=== PATIENT | female | born 1945 | race African-American/Black ===

== ENCOUNTER 2017-07-18 11:25 | Emergency (ER) | payer OTHER ==
[~2017-07-18] VITALS: Ht 154.9 cm; Wt 74.4 kg
[~2017-07-18 11:25] MED LIST: AMLODIPINE BESYL5 MG; ASPIR-LOW81 MG; DESPEC-DM TABL1 EACH PO; ENALAPRIL MALEA20 MG; HYDROCHLOROTHIA25 MG; LEVOXYL50 MCG; MECLIZINE HCL25 MG; SYNTHROID50 MCG; TUSSI PRES-B L120 M1 PO; ZITHROMAX500 MG PO
[2017-07-18] MEDS ORDERED: NORVASC5 MG (12:06)
[2017-07-18] MEDS ORDERED: LISINOPRIL20 MG (12:06)
[2017-07-18] MEDS ORDERED: ASPIR 8181 MG (12:06)
[2017-07-18] MEDS ORDERED: ZOCOR40 MG (12:06)
== END 2017-07-18 18:04 | disposition home or self-care (01) ==
LOC: ER 11:25
DX: S73.101A Unspecified sprain of right hip, initial encounter (principal); X50.0XXA Overexertion from strenuous movement or load, initial encounter; Y93.B2 Activity, push-ups, pull-ups, sit-ups; Y92.89 Other specified places as the place of occurrence of the external cause; Y99.8 Other external cause status

== ENCOUNTER → 2021-08-10 | Outpatient (CLI) | payer OTHER ==
[~2021-08-10] MED LIST changes: +ASPIR 8181 MG; +LISINOPRIL20 MG; +NORVASC5 MG; +ZOCOR40 MG
== END | disposition home or self-care (01) ==
LOC: MAMO-SONO 08:28
PROVIDERS: ATTEND Specialist
DX: R92.1 Mammographic calcification found on diagnostic imaging of breast (principal); N64.59 Other signs and symptoms in breast; Z12.31 Encounter for screening mammogram for malignant neoplasm of breast

== ENCOUNTER 2021-11-14 10:57 | Emergency (ER) | payer OTHER ==
[~2021-11-14] VITALS: Ht 154.9 cm; Wt 74.4 kg
[2021-11-14] MEDS ORDERED: LEVO-T50 MCG (11:05)
== END 2021-11-14 13:44 | disposition home or self-care (01) ==
LOC: ER 10:57
DX: M54.2 Cervicalgia (principal); M54.50 Low back pain, unspecified; I10 Essential (primary) hypertension; Z88.0 Allergy status to penicillin

== ENCOUNTER 2022-02-01 11:28 | Emergency (ER) | payer OTHER ==
[~2022-02-01] VITALS: Ht 154.9 cm; Wt 73.9 kg
[~2022-02-01 11:28] MED LIST changes: +LEVO-T50 MCG
[2022-02-01] MEDS ORDERED: LIPO-FLAVONOID1 EACH PO (11:56)
[2022-02-01] MEDS ORDERED: MOTION SICKNESS25 M1 PO (14:54)
== END 2022-02-01 15:05 | disposition home or self-care (01) ==
LOC: ER 11:28
DX: F41.9 Anxiety disorder, unspecified (principal); R42 Dizziness and giddiness; E03.9 Hypothyroidism, unspecified; E78.00 Pure hypercholesterolemia, unspecified; I10 Essential (primary) hypertension; Z88.0 Allergy status to penicillin

== ENCOUNTER 2022-09-07 10:39 | Emergency (ER) | payer OTHER ==
[~2022-09-07] VITALS: Ht 154.9 cm; Wt 74.4 kg
[~2022-09-07 10:39] MED LIST changes: +LIPO-FLAVONOID1 EACH PO; +MOTION SICKNESS25 M1 PO
[2022-09-07] MEDS ORDERED: SIMVASTATIN40 MG PO (11:20)
[2022-09-07] MEDS ORDERED: LISINOPRIL10 MG PO (11:20)
[2022-09-07] MEDS ORDERED: LEVOTHYROXINE50 MCG PO (11:20)
== END 2022-09-07 12:44 | disposition home or self-care (01) ==
LOC: ER 10:39
DX: J06.9 Acute upper respiratory infection, unspecified (principal); I10 Essential (primary) hypertension; E03.9 Hypothyroidism, unspecified; Z88.0 Allergy status to penicillin

== ENCOUNTER 2022-12-20 11:33 | Emergency (ER) | payer OTHER ==
[~2022-12-20] VITALS: Ht 154.9 cm; Wt 73.9 kg
[~2022-12-20 11:33] MED LIST changes: +LEVOTHYROXINE50 MCG PO; +LISINOPRIL10 MG PO; +SIMVASTATIN40 MG PO
== END 2022-12-20 15:39 | disposition home or self-care (01) ==
LOC: ER 11:33
DX: B34.9 Viral infection, unspecified (principal); E03.9 Hypothyroidism, unspecified; I10 Essential (primary) hypertension; E78.00 Pure hypercholesterolemia, unspecified; Z20.822 Contact with and (suspected) exposure to COVID-19; Z88.0 Allergy status to penicillin

== ENCOUNTER 2023-09-14 09:36 | Emergency (ER) | payer OTHER ==
[~2023-09-14] VITALS: Ht 154.9 cm; Wt 74.4 kg
== END 2023-09-14 11:09 | disposition home or self-care (01) ==
LOC: ER
DX: J06.9 Acute upper respiratory infection, unspecified (principal); R05.9 Cough, unspecified; Z20.822 Contact with and (suspected) exposure to COVID-19; Z88.0 Allergy status to penicillin

== ENCOUNTER 2024-05-15 10:30 | Emergency (ER) | payer OTHER ==
[~2024-05-15] VITALS: Ht 154.9 cm; Wt 63.5 kg
[~2024-05-15 10:30] MED LIST changes: +ADULT LOW DOSE81 M1 PO; +AMLODIPINE-OLM1 EAC3 PO; +LEVO-T50 MCG PO; +SIMVASTATIN80 MG; +ZESTRIL10 M1 PO
[2024-05-15] MEDS ORDERED: KETOROLAC TROMETHAMINE 30 MG VIAL IM STA (12:06)
[2024-05-15] MEDS ORDERED: GUAIFENESIN/DEXTROMETHORPHAN 10ML BLIST.PACK PO STA (12:07)
[2024-05-15] MEDS ORDERED: DEXAMETHASONE SODIUM PHOSPHATE 4 MG/ML VIAL IM STA (12:07)
[2024-05-15] MEDS ORDERED: ORPHENADRINE CITRATE 30 MG/ML AMPUL IM STA (12:08)
[2024-05-15 13:24] LABS: MEAN CELL VOLUME 86.3 fL (80.00-100.00); MEAN CORPUSCULAR HGB CONC 32.5 g/dl (32.0-36.0); PLATELET COUNT 257 K/uL (150-450); RED BLOOD COUNT 4.63 M/uL (4.00-6.00); RED CELL DISTRIBUTION WIDTH 15.3 % (11.5-14.5)
[2024-05-15] MEDS ORDERED: NABUMETONE500 MG PO (14:18)
[2024-05-15] MEDS ORDERED: NORFLEX100MG PO (14:18)
[2024-05-15] MEDS ORDERED: MUCINEX DM ER1 EAC1 PO (14:18)
[2024-05-15] MEDS ORDERED: ZITHROMAX500 MG PO (14:18)
[2024-05-15] MEDS ORDERED: MEDROLPACK PO (14:18)
[2024-05-15 14:47] VITALS: BP 131/78; O2SAT 100
== END 2024-05-15 14:49 | disposition home or self-care (01) ==
LOC: ER 10:30
PROVIDERS: General Practice
DX: J06.9 Acute upper respiratory infection, unspecified (principal); M54.50 Low back pain, unspecified; Z20.822 Contact with and (suspected) exposure to COVID-19; I10 Essential (primary) hypertension; E03.8 Other specified hypothyroidism; Z88.0 Allergy status to penicillin
CPT/HCPCS: 36415; 96372; 99282; J1100; J1885; J2360

== ENCOUNTER 2024-11-29 17:20 | Emergency (ER) | payer OTHER ==
[~2024-11-29] VITALS: Ht 154.9 cm; Wt 68.0 kg
[~2024-11-29 17:20] MED LIST changes: +MEDROLPACK PO; +MUCINEX DM ER1 EAC1 PO; +NABUMETONE500 MG PO; +NORFLEX100MG PO
[2024-11-29] MEDS ORDERED: SIMVASTATIN20 MG PO (17:47)
[2024-11-29] MEDS ORDERED: MECLIZINE HCL 25 MG TABLET PO ONE ×2 (19:00→19:06)
[2024-11-29 19:51] LABS: ALBUMIN 3.9 gm/dL (3.4-5.0); BILIRUBIN TOTAL 0.34 mg/dL (0.3-1.2); CALCIUM 9.5 mg/dL (8.5-10.1); CREATININE SERUM 0.84 mg/dL (0.55-1.02); GFR 65.24; GLOBULINA 4.4 G/DL (2.4-3.5); POTASSIUM 4.24 mEq/L (3.5-5.1); TOTAL PROTEIN 8.3 gm/dL (6.4-8.2)
[2024-11-29 20:06] LABS: INFLUENZA A AG NEGATIVE (NEGATIVE)
[2024-11-29 20:17] LABS: COVID-19 AG NEGATIVE (NEGATIVE)
[2024-11-29 20:39] LABS: BASO % 0.7 % (0.1-1.2); EOS # 0.15 (0.04-0.54); EOS % 1.7 % (0.7-7.0); LYMPH # 1.75 (1.18-3.74); LYMPH % 19.5 % (19.3-53.1); MEAN CORPUSCULAR HEMOGLOBIN 27.6 pg (25.6-32.2); MONO % 8.9 % (4.7-12.5); NEUT # 6.18 (1.56-6.13); NEUT % 68.9 % (34.0-71.1); PLATELET COUNT 297 K/uL (163-369); RED BLOOD COUNT 4.71 M/uL (3.93-5.22); RED CELL DISTRIBUTION WIDTH 15.3 % (11.6-14.4)
[2024-11-29 21:04] LABS: URINE APPEARANCE Clear; URINE BILIRRUBIN Negative (NEGATIVE); URINE BLOOD Negative; URINE COLOR Yellow; URINE GLUCOSE Negative (NEGATIVE); URINE KETONE Negative (NEGATIVE); URINE LEUKOCYTE Trace; URINE NITRATE Negative; URINE PROTEIN Negative (NEGATIVE); URINE UROBILINOGEN 0.2 E.U./dl
[2024-11-29 21:08] LABS: URINE BACTERIA 9.7 uL (0.0-1933); URINE EPITHELIAL CELLS 3.4 uL (0.0-38.8); URINE WBC 8.5 uL (0.0-23.2)
[2024-11-29 22:02] LABS: URINE CAST 0.14 uL (0.0-1.40); URINE RBC 0.4 uL (0.0-20.8)
== END 2024-11-29 22:19 ==
LOC: ER 17:32
PROVIDERS: General Practice
DX: R42 Dizziness and giddiness (principal); I10 Essential (primary) hypertension; E03.9 Hypothyroidism, unspecified; Z20.822 Contact with and (suspected) exposure to COVID-19; Z88.0 Allergy status to penicillin